=== PATIENT | male | born 1945 | race Caucasian/White ===

== ENCOUNTER 2020-02-10 05:51 | Inpatient (IN) | payer OTHER ==
[2020-02-02 11:59] VITALS: BMI 29.5
[2020-02-10] MEDS ORDERED: EPINEPHrine/PF 1 MG/1 ML (1:1,000) AMPULE ONE (06:38)
[2020-02-10] MEDS ORDERED: BUPIVACAINE HCL/PF 0.5% (5 MG/ML) 30 ML VIAL IJ ONE (06:38)
[2020-02-10] MEDS ORDERED: MIDAZOLAM HCL 2 MG/2 ML SINGLE DOSE VIAL ONE (06:38)
[2020-02-10] MEDS ORDERED: CEFAZOLIN 2 GM in DEXTROSE 5%-WATER - 50 ML IVPB ONE (06:43)
[2020-02-10] MEDS ORDERED: TRANEXAMIC ACID 1000 MG/10 ML VIAL IVPUSH ONE (06:43)
[2020-02-10] MEDS ORDERED: BUPIVICAINE 0.25%/MORPH PF/KETOROLAC - 51ML DISP.SYRINGE IA ONE ×2 (06:43→10:27)
[2020-02-10] MEDS ORDERED: ePHEDrine SULFATE 50 MG/1 ML AMPULE ONE (07:19)
[2020-02-10] MEDS ORDERED: PROPOFOL 20 ML ONE ×3 (07:19→08:53)
[2020-02-10] MEDS ORDERED: ceFAZolin SODIUM 1 GM VIAL ONE ×2 (07:20→07:22)
[2020-02-10] MEDS: PANTOPRAZOLE 40 MG TABLET PO ONE ×2 (07:20→12:57)
[2020-02-10] MEDS: CELECOXIB 200 MG CAPSULE PO ONE ×2 (07:20→12:55)
[2020-02-10] MEDS: oxyCODONE HCL 10 MG SUSTAINED ACTING TABLET PO ONE ×2 (07:20→12:55)
[2020-02-10] MEDS ORDERED: VANCOMYCIN 1,000 MG VIAL (RESTRICTED TO ID ONLY) ONE (07:22)
--- NOTE | 2020-02-10 07:45 | HP ---
Admitting History and Physical - Admission Chief Complaint: Right hip osteoarthritis x years History of Present Illness: 74 year old male presents today in regard to their right hip. Longstanding history of right hip osteoarthritis. Patient complains of pain, limited ROM, difficulty ambulating and difficulty completing activities of daily living. Patient has failed conservative treatment options including PO medications, injections, exercise programs and activity modification. Diagnostic testing reveals severe osteoarthritis of the right hip joint. At this point, patient would like to proceed with surgical intervention; a right total hip arthroplasty, MAKOplasty. - Past Medical History Cardiovascular: Yes: Hyperlipdemia Musculoskeletal: Yes: Osteoarthritis Additional Past Medical History: Hyperlipidemia H/o low platelets Glaucoma Insomnia - Past Surgical History Additional Past Surgical History: 2014 right side of jaw had infecton and cyst and impacted wisdom tooth 2006 (10/29) Colonoscopy Tics,hemorrhoids, JFwem Cataract Surgery, b/l ~2011 - Smoking History Smoking history: Never smoked Have you smoked in the past 12 months: No Home Medications - Allergies Allergies/Adverse Reactions: Allergies Allergy/AdvReac Type Severity Reaction Status Date / Time No Known Drug Allergies Allergy Verified 02/02/20 11:44 - Home Medications Home Medications: Ambulatory Orders Dorzolamide/Timolol/Pf [Dorzolamide-Timolol 2%-0.5%] 1 each OU BID 02/02/20 Latanoprost 0.005% Eye Drops [Xalatan 0.005% Eye Drops -] 1 drop OU HS 02/02/20 Simvastatin 20 mg PO HS 02/02/20 Zolpidem Tartrate 10 mg PO HS 02/02/20 Aspirin [ASA -] 81 mg PO DAILY 02/10/20 Review of Systems - Review of Systems Musculoskeletal: reports: Decreased ROM (right hip), Joint Pain (right hip) Physical Examination Vital Signs: Vital Signs Temperature 98.9 F 02/10/20 06:41 Pulse Rate 76 02/10/20 06:41 Respiratory Rate 16 02/10/20 06:41 Blood Pressure 174/78 H 02/10/20 06:41 O2 Sat by Pulse Oximetry (%) 99 02/10/20 06:41 Constitutional: Yes: Well Nourished, No Distress Eyes: Yes: Conjunctiva Clear HENT: Yes: Atraumatic Neck: Yes: Supple Cardiovascular: Yes: Regular Rate and Rhythm Respiratory: Yes: Regular Gastrointestinal: Yes: Soft ...Rectal Exam: Yes: Deferred Musculoskeletal: Yes: Joint Stiffness (right hip), Other (Limited ROM right hip) Assessment/Plan 74 year old male presents today in regard to their right hip. Longstanding history of right hip osteoarthritis. Patient complains of pain, limited ROM, difficulty ambulating and difficulty completing activities of daily living. Patient has failed conservative treatment options including PO medications, injections, exercise programs and activity modification. Diagnostic testing reveals severe osteoarthritis of the right hip joint. At this point, patient would like to proceed with surgical intervention; a right total hip arthroplasty, MAKOplasty. Pros, cons, risks, benefits & alternatives of a right total hip arthroplasty, MAKOplasty was discussed with the patient at length. Patient confirms his understanding and consents to proceed with a right total hip arthroplasty - MAKOplasty.
[2020-02-10] MEDS ORDERED: BUPIVACAINE HCL/PF 0.5% (5MG/ML) 10 ML VIAL ONE (08:13)
[2020-02-10] MEDS ORDERED: TRANEXAMIC ACID 1000 MG/10 ML VIAL ONE (08:49)
[2020-02-10] MEDS ORDERED: ceFAZolin SODIUM 1 GM VIAL IVPB ONE (09:22)
[2020-02-10] MEDS ORDERED: VANCOMYCIN 1,000 MG VIAL (RESTRICTED TO ID ONLY) IVPB ONE (09:23)
[2020-02-10] MEDS ORDERED: TRANEXAMIC ACID 1000 MG/10 ML VIAL IVPB ONE (09:23)
[2020-02-10] MEDS ORDERED: KETOROLAC TROMETHAMINE 30 MG/1 ML VIAL ONE (11:26)
[2020-02-10] MEDS ORDERED: traMADol HCL 50 MG TABLET ONE (11:26)
[2020-02-10] MEDS ORDERED: ACETAMINOPHEN INJECTION 100 ML IVPB ONE (11:26)
[2020-02-10] MEDS: KETOROLAC TROMETHAMINE 30 MG/1 ML VIAL IVPUSH SCH ×3 (11:30→18:33)
[2020-02-10] MEDS ORDERED: ONDANSETRON 4 MG/2 ML VIAL IVPUSH PRN (11:44)
[2020-02-10] MEDS ORDERED: oxyCODONE HCL 5 MG TABLET PO PRN (11:44)
[2020-02-10] MEDS ORDERED: LACTATED RINGERS SOLUTION 1,000 ML IV SCH (11:45)
[2020-02-10] MEDS ORDERED: ACETAMINOPHEN 1000 MG/100 ML VIAL (NON FORMULARY) IVPB ONE (11:46)
--- NOTE | 2020-02-10 11:46 | OP ---
Operative Note - Note: Operative Date: 02/10/20 Pre-Operative Diagnosis: Right hip OA Operation: Right VIELKA Post-Operative Diagnosis: Same as Pre-op Surgeon: Dane Osborn [facility] Nurse: Frances Neely Anesthesia: Spinal Estimated Blood Loss (mls): 200
[2020-02-10] MEDS: traMADol HCL 50 MG TABLET PO SCH ×2 (12:00→18:03)
--- NOTE | 2020-02-10 14:51 | SURG ---
Surgery Head Paper Tester Note Head Paper Tester: Frances Neely PA-C Date of Service: 02/10/20 Diagnosis: Right hip osteoarthritis Procedure: Jason assisted right total hip arthroplasty I was present for the entirety of the operative procedure. For further detail, please refer to operative report. Visit type - Case Type Case Type: Scheduled - Emergency Emergency Visit: No - New patient This patient is new to me today: Yes Date on this admission: 02/10/20
--- NOTE | 2020-02-10 16:02 | SPEC ---
DATE OF OPERATION: 02/10/2020 PREOPERATIVE DIAGNOSIS: Right hip osteoarthritis. POSTOPERATIVE DIAGNOSIS: Right hip osteoarthritis. PROCEDURE: Right total hip replacement with MAKOplasty robotic navigation. ATTENDING: Kane Alexander MD PROGRAM/MUSIC DIRECTOR: Frances Neely PA-C ANESTHESIA: Spinal plus sedation. ESTIMATED BLOOD LOSS: 200 mL COMPLICATIONS: None. DISPOSITION: The patient was transferred to the PACU in stable condition. IMPLANTS USED: Oswaldo Trident II 56-mm acetabular component with 30-, 30- and 20-mm acetabular screws; size 7 Accolade II femoral component; MDM bipolar head ball and liner. INDICATIONS: This is a 74-year-old male who presented to the office complaining of severe right hip pain. He was seen and examined by Dr. Alexander and diagnosed with severe right hip osteoarthritis. The patient was initially treated conservatively, but continued to have severe pain and ambulatory dysfunction. He was, therefore, indicated for a right total hip replacement. The risks, benefits and alternatives to the procedure were explained to the patient in great detail and he elected to proceed with the surgery. DESCRIPTION OF PROCEDURE: On the day of surgery, the patient was taken to the operating room and placed on the OR table. Spinal anesthesia was administered by the anesthesiologist. The patient was then positioned in the lateral decubitus position on the table and all bony prominences were padded. An axillary roll was placed. The operative hip was then prepped and draped in the usual sterile fashion and intravenous antibiotics were given for infection prophylaxis. A surgical time-out was then performed with the team, and the patients identity, procedure, side, availability of implants, and the administration of antibiotics were confirmed. An approximately 15-cm longitudinal incision was made through the skin centered on the greater trochanter of the hip. This dissection was carried down through the subcutaneous tissues to the deep fascia. This fascia was then incised and a Cobra was placed around the inferior femoral neck. Electrocautery was used to reflect the anterior 40% of the gluteus medius and minimus starting at the musculotendinous junction and leaving a cuff for closure. This was reflected to reveal the capsule of the hip joint. An anterior capsulectomy was performed and the femoral head and neck were visualized. Grade 4 changes were noted diffusely throughout the joint. At this point, three small stab incisions were made superior to the main incision along the iliac crest. Three self-drilling Steinmann pins were then placed and the TAMMI pelvic array was attached. Reference points on the limb were then entered into the robotic device and the limb length deficiency, offset, and femoral neck resection level were then calculated by the software. The hip was then dislocated with traction and external rotation. An oscillating saw was used to make the femoral neck cut at the level previously templated, and the femoral head was removed. Attention was then turned to the acetabulum. Retractors were then placed around the acetabulum and the labrum was removed. An acetabular checkpoint pin and the [employer] software were used to register the contours of the acetabulum. The acetabulum was then reamed in a single stage to the preoperatively templated size using the TAMMI robotic arm. The appropriately sized cup was then impacted and had solid fixation as well as the preset inclination and version of 40 and 20 degrees, respectively. A polyethylene liner was then placed in the cup. Attention was then turned back to the femur, which was externally rotated for improved visualization. A femoral neck elevator was used to present the femoral neck cut, a box osteotome was used to enter the femoral canal, and a canal finder was used to go down the femoral shaft. The TAMMI broaches were used sequentially until the optimal scratch fit was achieved. This correlated with the preoperatively templated size. From here, several different offset head and neck configurations were tested until excellent stability and length were obtained. These measurements were quantified using the [employer] software. All trial components were then removed, the femur was copiously irrigated, and the final components were placed. Leg length and stability were checked again and found to be excellent. Irrigation was performed again. Wound closure was started by repairing the abductor muscles with a no. 2 FiberWire stitch in a Krackow configuration passed through bone tunnels in the greater trochanter and tied over a bony bridge. This repair was then reinforced with a 0 V-Loc 180 barbed suture. Next, no. 1 Polysorb and 0 V-Loc 180 were used to close the fascia. The deep subcutaneous tissue was closed with no. 1 Polysorb sutures, and 2-0 Polysorb was used for the superficial subcutaneous tissue. The skin was closed using both 3-0 V-Loc 90 suture in a running subcuticular fashion and SwiftSet skin adhesive. The TAMMI array and pins were removed from the iliac crest and the stab incision sites were irrigated and closed with 4-0 Polysorb sutures and SwiftSet skin adhesive. Once this was completed, a sterile dressing was applied. The patient was then awakened and taken to the PACU in stable condition. ADDENDUM: After final implants were placed, a 3-minute Betadine soak was performed. Following this, wound closure was begun. KANE ALEXANDER M.D. [id number]
[2020-02-10] MEDS ORDERED: DEXAMETHASONE SOD PHOSPHATE 10 MG/1 ML VIAL IVPB ONE (20:00)
[2020-02-10] MEDS ORDERED: PT OWN MED DRAWER 7, Y5N ONE (21:05)
[2020-02-10] MEDS: ATORVASTATIN CA 10 MG TABLET (FP) PO SCH (21:06)
[2020-02-10] MEDS: oxyCODONE HCL 10 MG SUSTAINED ACTING TABLET PO SCH (21:07)
[2020-02-10] MEDS: LATANOPROST 0.005% OPHTH SOLN 2.5ML BOTTLE OU SCH (21:08)
[2020-02-11] MEDS: traMADol HCL 50 MG TABLET PO SCH ×4 (00:07→23:20)
[2020-02-11] MEDS: KETOROLAC TROMETHAMINE 30 MG/1 ML VIAL IVPUSH SCH ×2 (00:11→05:55)
[2020-02-11] MEDS: TIMOLOL 0.5% OPHTHALMIC SOL 5 ML BOTTLE OU SCH ×2 (10:05→22:46)
[2020-02-11] MEDS: oxyCODONE HCL 10 MG SUSTAINED ACTING TABLET PO SCH (10:10)
[2020-02-11] MEDS: DORZOLAMIDE 2% HCL OPHTHALMIC SOLUTION 10 ML BOTTLE OU SCH ×2 (13:03→22:45)
--- NOTE | 2020-02-11 13:19 | PN ---
Progress Note (short form) - Note Progress Note: S: pt. without complaints. sitting comfortable in a chair O: VAS 10 A/P: POD#1 s/p Right Total Hip Replacement 1. Continue pain meds as ordered 2. No apparent anesthetic complications
[2020-02-11] MEDS ORDERED: MAG HYDROX/AL HYDROX/SIMETH 30 ML UNIT-DOSE CUP PO PRN (13:23)
[2020-02-11] MEDS ORDERED: MAGNESIUM HYDROX 2400MG/30ML ORAL SUSPENSION 30 ML CUP PO PRN (13:23)
[2020-02-11] MEDS ORDERED: ONDANSETRON 4 MG/2 ML VIAL IVPUSH PRN (13:23)
[2020-02-11] MEDS ORDERED: oxyCODONE HCL 5 MG TABLET PO PRN ×2 (13:28)
[2020-02-11] MEDS: ASCORBIC ACID 500 MG TABLET (FP) PO SCH ×2 (14:00→22:44)
[2020-02-11] MEDS: MULTIVITAMINS (DAILY MVI) TABLET (FP) PO SCH (14:00)
[2020-02-11] MEDS: CELECOXIB 200 MG CAPSULE PO SCH ×2 (14:00→22:44)
[2020-02-11] MEDS: PANTOPRAZOLE 40 MG TABLET PO SCH (14:00)
[2020-02-11] MEDS: CEFAZOLIN 2 GM/D5W 2 GM/50 ML ML IVPB SCH ×2 (15:00→22:45)
[2020-02-11] MEDS ORDERED: ASPIRIN 325 MG TABLET ONE (16:24)
[2020-02-11] MEDS: ASPIRIN 325 MG TABLET PO SCH (16:32)
[2020-02-11] MEDS ORDERED: ZOLPIDEM TARTRATE 5 MG TABLET PO PRN (22:00)
[2020-02-11] MEDS: SENNOSIDES/DOCUSATE COMBO (SENNA PLUS) TABLET (UD) PO SCH (22:43)
[2020-02-11] MEDS: ATORVASTATIN CA 10 MG TABLET (FP) PO SCH (22:44)
[2020-02-11] MEDS: GABAPENTIN 300 MG CAPSULE PO SCH (22:44)
[2020-02-11] MEDS: LATANOPROST 0.005% OPHTH SOLN 2.5ML BOTTLE OU SCH (22:45)
[2020-02-11] MEDS ORDERED: PT OWN MED DRAWER 7, Y5N ONE (23:19)
--- NOTE | 2020-02-12 00:15 | PN ---
Progress Note (short form) - Note Progress Note: Pt seen and examined. Doing well. AVSS Selected Entries 02/11/20 19:39 Temperature 99.0 F Pulse Rate 85 Respiratory 18 Rate Blood Pressure 142/79 O2 Sat by Pulse 97 Oximetry (%) Gen: NAD RLE: c/d/i, NVID A/P POD#1 s/p R VIELKA PT/OOB - WBAT RLE LABS in AM D/C planning to [facility]
--- NOTE | 2020-02-12 00:24 | DS ---
Physical Examination Vital Signs: Vital Signs Temperature 99.0 F 02/11/20 19:39 Pulse Rate 85 02/11/20 19:39 Respiratory Rate 18 02/11/20 19:39 Blood Pressure 142/79 02/11/20 19:39 O2 Sat by Pulse Oximetry (%) 97 02/11/20 19:39 Discharge Summary Problems reviewed: Yes Reason For Visit: RIGHT HIP OSTEOARTHRITIS Current Active Problems Osteoarthritis of right hip (Acute) Procedures: Principal: Right TAMMI VIELKA Hospital Course: Admitted for elective surgery. Procedure performed without complications. Pt received postoperative antibiotic prophylaxis and DVT ppx. Ambulated with physical therapy. Stable for discharge home with outpatient followup. Condition: Stable - Instructions Diet, Activity, Other Instructions: Dr Osborn - Hip Replacement Instructions Keep the Aquacel dressing on until removed by Dr. Osborn in 2 weeks- it is antibacterial and waterproof and you can shower with it on. Call the office for a follow-up appointment with Dr. Osborn in 2 weeks. [phone] Take one Aspirin 325mg daily for 6 weeks to prevent blood clots in your legs. After 6 weeks, resume your preop dose of 81mg daily. Take one Pantoprazole 40mg daily for 6 weeks to protect against heartburn and ulcers. Take Cephalexin (antibiotic) 3x/day for 10 days to help prevent skin infection. Take Celebrex 200mg daily for 30 days to reduce swelling and inflammation. Take a multivitamin, stool softener and extra Vitamin C supplement daily. For pain: *Mild pain (1-3/10): Take 1 Tramadol tablet every 4 hours as needed. Moderate pain (4-6/10): Take 1 Tramadol tablet and 1 Percocet tablet every 4 hours as needed. Severe pain (7-10/10): Take 1 Tramadol tablet and 2 Percocet tablets every 4 hours as needed. Activity: You can put as much weight on the operative leg as you want. For the first 6 weeks, all you need to do is walking and light exercise. After 6 weeks when everything is healed (and bone has grown into the implant) you will be sent for more intensive outpatient physical therapy. Always use a walker or cane for balance and to prevent falls. Expect to see swelling / bruising from the operative site all the way down to your toes. Wear the Compression stocking on the operative side during the day to minimize how much swelling there is in your foot/ankle. Don't wear the stocking at night. You don't have to wear the stocking on the other side. Disposition: VNS/HOME HEALTH CARE - Home Medications Comprehensive Discharge Medication List: Ambulatory Orders Dorzolamide/Timolol/Pf [Dorzolamide-Timolol 2%-0.5%] 1 each OU BID 02/02/20 Latanoprost 0.005% Eye Drops [Xalatan 0.005% Eye Drops -] 1 drop OU HS 02/02/20 Simvastatin 20 mg PO HS 02/02/20 Zolpidem Tartrate 10 mg PO HS 02/02/20 Ascorbic Acid [Vitamin C -] 500 mg PO BID tablet 02/12/20 Aspirin [ASA -] 325 mg PO DAILY@0800 tablet 02/12/20 Aspirin [Aspirin EC] 325 mg PO DAILY #42 tab 02/12/20 Celecoxib [CeleBREX -] 200 mg PO DAILY #30 cap 02/12/20 Cephalexin Monohydrate [Keflex -] 500 mg PO TID #30 capsule 02/12/20 Multivitamins [Multivit (RH Formulary)] 1 tab PO DAILY tab 02/12/20 Oxycodone HCl/Acetaminophen [Percocet 5-325 mg Tablet] 1 - 2 tab PO Q4H PRN #60 tablet MDD 10 02/12/20 Pantoprazole Sodium [Protonix -] 40 mg PO DAILY tab 02/12/20 Pantoprazole Sodium [Protonix -] 40 mg PO DAILY #40 tab 02/12/20 Sennosides/Docusate Sodium [Pericolace -] 2 tablet PO BID tablet 02/12/20 traMADol HCL [Ultram -] 50 mg PO Q4H PRN #42 tab MDD 6 02/12/20
[2020-02-12] MEDS: traMADol HCL 50 MG TABLET PO SCH (05:39)
[2020-02-12] MEDS: ASPIRIN 325 MG TABLET PO SCH (08:26)
[2020-02-12 09:51] VITALS: BP 135/61; PULSE 86; TEMP 98.9
[2020-02-12] MEDS: PANTOPRAZOLE 40 MG TABLET PO SCH (10:38)
[2020-02-12] MEDS: SENNOSIDES/DOCUSATE COMBO (SENNA PLUS) TABLET (UD) PO SCH (10:38)
[2020-02-12] MEDS: MULTIVITAMINS (DAILY MVI) TABLET (FP) PO SCH (10:39)
[2020-02-12] MEDS: ASCORBIC ACID 500 MG TABLET (FP) PO SCH (10:39)
[2020-02-12] MEDS: CELECOXIB 200 MG CAPSULE PO SCH (10:39)
[2020-02-12] MEDS: GABAPENTIN 300 MG CAPSULE PO SCH (10:39)
[2020-02-12] MEDS: DORZOLAMIDE 2% HCL OPHTHALMIC SOLUTION 10 ML BOTTLE OU SCH (10:40)
[2020-02-12] MEDS: TIMOLOL 0.5% OPHTHALMIC SOL 5 ML BOTTLE OU SCH (10:40)
[2020-02-12] MEDS ORDERED: ASPIRIN 325 MG TABLET PO SCH (13:25)
--- NOTE | 2020-02-15 15:05 | PATH ---
Surgical Pathology Report Patient Name: MK MILLIGAN Med. Rec. #: [id number] /Age/Gender: 1945 (Age: 74) / M Account: [id number] Location: [facility] MED-SURG Taken: 02/10/2020 Received: 02/10/2020 Reported: 02/15/2020 Physicians: Dane Osborn M.D. Specimen(s) Received RIGHT FEMORAL HEAD Clinical History Right hip osteoarthritis Final Diagnosis RIGHT FEMORAL HEAD, RESECTION: DEGENERATIVE JOINT DISEASE, RIGHT HIP. Electronically Signed Salvador Willson M.D. Gross Description Received in formalin, labeled "right femoral head," is a 7.5 x 5.5 x 5 cm. femoral head with attached portion of femoral neck. The margin of resection is smooth. The articular surface shows areas of eburnation and appears granular. The underlying trabecular bone is yellow and hard. A client care representative section is submitted in one cassette, following decalcification. AE/02/11/2020 ebram/02/11/2020
== END 2020-02-12 11:45 | disposition home health service (06) | DRG 470 ==
LOC: FM/S 05:51
PROVIDERS: ADMIT Student in an Organized Health Care Education/Training Program; ATTEND Student in an Organized Health Care Education/Training Program
PROC: 8E0W0CZ Robotic Assisted Procedure of Trunk Region, Open Approach (ICD-10-PCS; 2020-02-10)
PROC: 0SR90JA Replacement of Right Hip Joint with Synthetic Substitute, Uncemented, Open Approach (ICD-10-PCS; principal; 2020-02-10 09:12)
DX: M16.11 Unilateral primary osteoarthritis, right hip (principal); E78.5 Hyperlipidemia, unspecified; H40.9 Unspecified glaucoma; G47.00 Insomnia, unspecified
CPT/HCPCS: 73502-TC-RT-FY; 88304-TC; 88311-TC; 94760; 97116-GP; 97163-GP; J0131; J1100

== ENCOUNTER 2020-05-07 12:05 | Emergency (ER) | payer OTHER ==
[2020-05-07 12:11] VITALS: PULSE 81; TEMP 98; BMI 28.5
[2020-05-07 14:41] VITALS: BP 166/88
== END 2020-05-07 14:41 | disposition home or self-care (01) ==
LOC: JERFT 12:05
DX: M25.551 Pain in right hip (principal)
CPT/HCPCS: 72170-TC-FY; 73502-TC-RT-FY; 93971-TC; 99285-25